=== PATIENT | male | born 1975 | race Caucasian/White ===

== ENCOUNTER → 2020-10-24 | Emergency (ER) | payer BC ==
[~2020-10-24] MED LIST: ASPIRIN 81 MG CHEWABLE TABLET ONE; NA CHLORIDE 0.9% 1,000 ML ONE
[2020-10-24 17:34] LABS: Absolute Lymphocytes (CBC) 2.3 K/uL (0.7-4.9); Basophils % 0.9 % (0-1.3); Hematocrit 39.9 % (39.6-49.0); Lymphocytes % 32.4 % (15.3-44.8); MPV 8.7 fL (7.6-11.3); RBC Red Blood Cell Count 4.32 M/uL (4.33-5.43)
[2020-10-24 17:48] LABS: Protime INR 1.04
[2020-10-24 17:56] LABS: ALT/SGPT 29 U/L (12-78); AST/SGOT 26 U/L (15-37); Albumin 3.4 g/dL (3.4-5.0); Alkaline Phosphatase 84 U/L (45-117); BUN Blood Urea Nitrogen 16 mg/dL (7-18); Bicarbonate 30 mmol/L (21-32); Bilirubin Direct 0.1 mg/dL (0-0.2); Bilirubin Total 0.4 mg/dL (0.2-1.0); Glucose Level 101 mg/dL (74-106); Magnesium 2.1 mg/dL (1.8-2.4); NT PRO-BNP 36 pg/mL (<125); Protein, Total 7.8 g/dL (6.4-8.2); Sodium Level 139 mmol/L (136-145); Troponin (Emerg Dept Use Only) < 0.02 ng/mL (0.0-0.045)
--- NOTE | 2020-10-24 18:38 | ER ---
Nurse's Notes [facility] Name: Aaron Yang Age: 45 yrs Sex: Male : 1975 Arrival Date: 10/24/2020 Time: 16:46 Bed 20 Private MD: Diagnosis: Chest pain, unspecified Presentation: 10/24 16:49 Chief complaint: Patient states: L CP started today. SOB, blurred vision. States it ll1 feels the same as the last time he had a heart attack (10 years ago). Coronavirus screen: Client denies travel out of the [place] in the last 14 days. At this time, the client does not indicate any symptoms associated with coronavirus-19. Ebola Screen: Patient denies travel to an Ebola-affected area in the 21 days before illness onset. Initial Sepsis Screen: Does the patient meet any 2 criteria? No. Patient's initial sepsis screen is negative. Does the patient have a suspected source of infection? No. Patient's initial sepsis screen is negative. Risk Assessment: Do you want to hurt yourself or someone else? Patient reports no desire to harm self or others. Onset of symptoms was October 24, 2020. 16:49 Method Of Arrival: Ambulatory ll1 16:49 Acuity: ZAINAB 3 ll1 Historical: - Allergies: 16:51 No Known Allergies; ll1 - PMHx: 16:51 Myocardial infarction; Diabetes - IDDM; ll1 - PSHx: 16:51 back sx; ll1 - Immunization history:: Flu vaccine is not up to date. - Social history:: Smoking status: Patient reports the use of cigarette tobacco products, smokes one-half pack cigarettes per day. - Family history:: not pertinent. Screenin:20 Abuse screen: Denies threats or abuse. Denies injuries from another. Nutritional ca1 screening: No deficits noted. Tuberculosis screening: No symptoms or risk factors identified. Fall Risk IV access (20 points). Assessment: 17:20 General: Appears in no apparent distress. comfortable, Behavior is calm, cooperative, ca1 appropriate for age. Pain: Complains of pain in anterior aspect of left upper chest Pain radiates to left lateral anterior chest Pain currently is 6 out of 10 on a pain scale. Quality of pain is described as dull, Pain began this morning Aggravated by increased activity. Neuro: Level of Consciousness is awake, alert, obeys commands, Oriented to person, place, time, situation. Cardiovascular: Heart tones S1 S2 present Capillary refill < 3 seconds Patient's skin is warm and dry. Rhythm is sinus bradycardia. Respiratory: Airway is patent Respiratory effort is even, unlabored, Respiratory pattern is regular, symmetrical, Breath sounds are clear bilaterally. GI: Abdomen is flat, non-distended, Bowel sounds present X 4 quads. Abd is soft and non tender X 4 quads. : No signs and/or symptoms were reported regarding the genitourinary system. EENT: No signs and/or symptoms were reported regarding the EENT system. Derm: Skin is intact, is healthy with good turgor, Skin is pink, warm \T\ dry. Musculoskeletal: Circulation, motion, and sensation intact. Capillary refill < 3 seconds. 18:30 Reassessment: Patient appears in no apparent distress at this time. Patient and/or ca1 family updated on plan of care and expected duration. Pain level reassessed. Patient is alert, oriented x 3, equal unlabored respirations, skin warm/dry/pink. Vital Signs: 16:49 BP 140 / 90; Pulse 73; Resp 17; Temp 97.6; Pulse Ox 99% ; Weight 83.91 kg; Height 6 ft. ll1 0 in. (182.88 cm); Pain 9/10; 18:30 BP 128 / 79; Pulse 54; Resp 18 S; Pulse Ox 99% on R/A; ca1 16:49 Body Mass Index 25.09 (83.91 kg, 182.88 cm) ll1 ED Course: 16:46 Patient arrived in ED. as 16:49 Arm band placed on. ll1 16:50 Triage completed. ll1 17:02 Yunior Roman MD is Attending Physician. ma2 17:20 Crystal Luque, SLAVA is Primary Nurse. ca1 17:20 Patient has correct armband on for positive identification. Bed in low position. Call ca1 light in reach. Side rails up X 1. front desk monitor on. Pulse ox on. NIBP on. Warm blanket given. 17:25 Initial lab(s) drawn, by ED staff, sent to lab. Inserted saline lock: 20 gauge in right ca1 antecubital area, using aseptic technique. Blood collected. by GILBERT Lott tech. Patient maintains SpO2 saturation greater than 95% on room air. 18:17 XRAY Chest (1 view) In Process Unspecified. EDMS 18:38 Cruz Campuzano MD is Hospitalizing Provider. ma2 19:13 No provider procedures requiring assistance completed. IV discontinued, intact, ca1 bleeding controlled, No redness/swelling at site. Pressure dressing applied. Administered Medications: 17:46 Drug: NS 0.9% 1000 ml Route: IV; Rate: 1 bolus; Site: right antecubital; ca1 19:40 Follow up: Response: No adverse reaction; IV Status: Completed infusion; IV Intake: ca1 1000ml 17:46 Drug: Aspirin Chewable Tablet 324 mg Route: PO; ca1 18:30 Follow up: Response: No adverse reaction ca1 Intake: 19:40 IV: 1000ml; Total: 1000ml. ca1 Outcome: 18:38 Decision to Hospitalize by Provider. ma2 19:13 AMA Other refused to sign ca1 19:14 Patient left the ED. ca1 Signatures: Dispatcher [employer] Rocio Larson Mohammad, MD MD ma2 Crystal Luque RN RN ca1 Zenaida Pantoja RN RN ll1
--- NOTE | 2020-10-24 18:39 | EDPHYS ---
Physician Documentation [facility] Name: Aaron Yang Age: 45 yrs Sex: Male : 1975 Arrival Date: 10/24/2020 Time: 16:46 Bed 20 Private MD: ED Physician Yunior Roman HPI: 10/24 17:25 This 45 yrs old Male presents to ER via Ambulatory with complaints of Chest ma2 Pain. 17:25 The patient or guardian reports chest pain that is located primarily in the substernal ma2 area. Onset: gradually, 1 day(s) ago. Associated signs and symptoms: Pertinent negatives: cough, headache, lower extremity swelling, nausea, syncope, vomiting. Severity of pain: At its worst the pain was moderate in the emergency department the pain is unchanged. The patient has experienced similar episodes in the past. Historical: - Allergies: 16:51 No Known Allergies; ll1 - PMHx: 16:51 Myocardial infarction; Diabetes - IDDM; ll1 - PSHx: 16:51 back sx; ll1 - Immunization history:: Flu vaccine is not up to date. - Social history:: Smoking status: Patient reports the use of cigarette tobacco products, smokes one-half pack cigarettes per day. - Family history:: not pertinent. ROS: 17:25 Constitutional: Negative for fever, chills, and weight loss. ma2 17:25 All other systems are negative. Exam: 17:25 Constitutional: This is a well developed, well nourished patient who is awake, alert, ma2 and in no acute distress. ENT: Nares patent. No nasal discharge, no septal abnormalities noted. Tympanic membranes are normal and external auditory canals are clear. Oropharynx with no redness, swelling, or masses, exudates, or evidence of obstruction, uvula midline. Mucous membranes moist. Neck: Trachea midline, no thyromegaly or masses palpated, and no cervical lymphadenopathy. Supple, full range of motion without nuchal rigidity, or vertebral point tenderness. No Meningismus. Chest/axilla: Normal chest wall appearance and motion. Nontender with no deformity. No lesions are appreciated. Cardiovascular: Regular rate and rhythm with a normal S1 and S2. No gallops, murmurs, or rubs. Normal PMI, no JVD. No pulse deficits. Respiratory: Lungs have equal breath sounds bilaterally, clear to auscultation and percussion. No rales, rhonchi or wheezes noted. No increased work of breathing, no retractions or nasal flaring. Abdomen/GI: Soft, non-tender, with normal bowel sounds. No distension or tympany. No guarding or rebound. No evidence of tenderness throughout. MS/ Extremity: Pulses equal, no cyanosis. Neurovascular intact. Full, normal range of motion. Neuro: Awake and alert, GCS 15, oriented to person, place, time, and situation. Cranial nerves II-XII grossly intact. Motor strength 5/5 in all extremities. Sensory grossly intact. Cerebellar exam normal. Normal gait. Vital Signs: 16:49 BP 140 / 90; Pulse 73; Resp 17; Temp 97.6; Pulse Ox 99% ; Weight 83.91 kg; Height 6 ft. ll1 0 in. (182.88 cm); Pain 9/10; 18:30 BP 128 / 79; Pulse 54; Resp 18 S; Pulse Ox 99% on R/A; ca1 16:49 Body Mass Index 25.09 (83.91 kg, 182.88 cm) ll1 MDM: 17:02 Patient medically screened. ma2 18:37 Differential diagnosis: abnormal EKG, anxiety, chest wall pain, gastroesophageal reflux ma2 disease (GERD). HEART Score: History: Moderately Suspicious (1), ECG: Normal (0), Age: > 45 and < 65 years (1), Risk Factors: > or = 3 Risk factors for atherosclerotic disease (2), Troponin: < or = 1 x Normal Limit (0), Total Score = 2. Data reviewed: vital signs, nurses notes. Counseling: I had a detailed discussion with the patient and/or guardian regarding: the historical points, exam findings, and any diagnostic results supporting the discharge/admit diagnosis, the presence of at least one elevated blood pressure reading (>120/80) during this emergency department visit, the need for further work-up and treatment in the hospital. 10/24 17:03 Order name: Basic Metabolic Panel [facility] 10/24 17:03 Order name: CBC with Diff [facility] 10/24 17:03 Order name: LFT's [facility] 10/24 17:03 Order name: Magnesium [facility] 10/24 17:03 Order name: NT PRO-BNP [facility] 10/24 17:03 Order name: PT-INR [facility] 10/24 17:03 Order name: Troponin (emerg Dept Use Only) [facility] 10/24 17:48 Order name: CBC with Automated Diff; Complete Time: 18:26 EDMS 10/24 17:56 Order name: Basic Metabolic Panel; Complete Time: 18:26 EDMS 10/24 17:56 Order name: Liver (Hepatic) Function; Complete Time: 18:26 EDMS 10/24 17:56 Order name: Troponin (Emerg Dept Use Only); Complete Time: 18:26 EDMS 10/24 17:56 Order name: NT PRO-BNP; Complete Time: 18:26 EDMS 10/24 17:56 Order name: Magnesium; Complete Time: 18:26 [facility] 10/24 17:57 Order name: Protime (+INR); Complete Time: 18:26 EDMS 10/24 17:03 Order name: XRAY Chest (1 view); Complete Time: 18:53 [facility] 10/24 17:03 Order name: EKG; Complete Time: 17:04 [facility] 10/24 17:03 Order name: Cardiac monitoring; Complete Time: 17:16 [facility] 10/24 17:03 Order name: EKG - Nurse/Tech; Complete Time: 17:17 ma2 10/24 17:03 Order name: IV Saline Lock; Complete Time: 17:33 nd2 10/24 17:03 Order name: Labs collected and sent; Complete Time: 17:33 [facility] 10/24 17:03 Order name: O2 Per Protocol; Complete Time: 17:17 [facility] 10/24 17:03 Order name: O2 Sat Monitoring; Complete Time: 17:17 ma2 Administered Medications: 17:46 Drug: NS 0.9% 1000 ml Route: IV; Rate: 1 bolus; Site: right antecubital; ca1 19:40 Follow up: Response: No adverse reaction; IV Status: Completed infusion; IV Intake: ca1 1000ml 17:46 Drug: Aspirin Chewable Tablet 324 mg Route: PO; ca1 18:30 Follow up: Response: No adverse reaction ca1 Disposition: 10/24/20 18:38 Hospitalization ordered by Cruz Campuzano for Observation. Preliminary diagnosis is Chest pain, unspecified. - Bed requested for Telemetry/MedSurg (observation). - Status is Observation. ca1 - Condition is Stable. - Problem is new. - Symptoms are unchanged. Signatures: Dispatcher [employer] EDMS Jorge Reid, TEXTILE SCRAP SALVAGER-C TEXTILE SCRAP SALVAGER-Cla1 Yunior Roman MD MD ma2 Crystal Luque RN RN ca1 Zenaida Pantoja RN RN ll1 Corrections: (The following items were deleted from the chart) 19:14 18:38 Hospitalization Ordered by Cruz Campuzano MD for Observation. Preliminary ca1 diagnosis is Chest pain, unspecified. Bed requested for Telemetry/MedSurg (observation). Status is Observation. Condition is Stable. Problem is new. Symptoms are unchanged. ma2
--- NOTE | 2020-10-24 18:42 | RAD REPORT ---
EXAM DESCRIPTION: RAD - Chest Single View - 10/24/2020 6:17 pm CLINICAL HISTORY: CHEST PAIN Chest pain. COMPARISON: No comparisons FINDINGS: Portable technique limits examination quality. The lungs are grossly clear. The heart is normal in size. No displaced fractures. IMPRESSION: No acute intrathoracic process suspected.
[2020-10-24 20:11] VITALS: TEMP 97.6; O2SAT 99
[2020-10-24 20:13] VITALS: BP 128/79
--- NOTE | 2020-10-25 07:50 | EKG ---
Test Date: 2020-10-24 Test Time: 17:25:38 Fixture Repairer Fabricator: OSEAS MEASUREMENT RESULTS: Intervals: Rate: 54 SD: 150 QRSD: 90 QT: 416 QTc: 394 Sinclair: P: 67 SD: 150 QRS: 66 T: 60 INTERPRETIVE STATEMENTS: Sinus bradycardia Otherwise normal ECG No previous ECG available for comparison Electronically Signed On 10-25-20 07:49:01 CDT by Luis Singleton
== END ==
LOC: ER 16:45
DX: R07.9 Chest pain, unspecified (principal); F17.210 Nicotine dependence, cigarettes, uncomplicated; I25.2 Old myocardial infarction; E11.9 Type 2 diabetes mellitus without complications; Z79.4 Long term (current) use of insulin
CPT/HCPCS: 96361; 93005; 85025; 80048; 36415; 83735; 85610; 80076; 84484; 83880; 71045; 96360; 99285; J7030